=== PATIENT | female | born 1950 | race Caucasian/White ===

== ENCOUNTER → 2019-04-26 | Outpatient (CLI) | payer OTHER | LOC: HYPER 03-22 08:28 | DX: I89.0 Lymphedema, not elsewhere classified (principal); E11.40 Type 2 diabetes mellitus with diabetic neuropathy, unspecified; L60.0 Ingrowing nail; M72.2 Plantar fascial fibromatosis; I73.9 Peripheral vascular disease, unspecified; D64.9 Anemia, unspecified; B35.1 Tinea unguium; B35.3 Tinea pedis; B36.9 Superficial mycosis, unspecified; R60.0 Localized edema; Z87.891 Personal history of nicotine dependence; Z79.84 Long term (current) use of oral hypoglycemic drugs ==

== ENCOUNTER → 2021-05-29 | Outpatient (CLI) | payer OTHER | LOC: SJCVC 10:15 | PROVIDERS: ATTEND Nuclear Medicine Nuclear Cardiology | DX: I87.303 Chronic venous hypertension (idiopathic) without complications of bilateral lower extremity (principal); M79.89 Other specified soft tissue disorders; I89.0 Lymphedema, not elsewhere classified; E78.00 Pure hypercholesterolemia, unspecified; I10 Essential (primary) hypertension; E11.9 Type 2 diabetes mellitus without complications; Z90.49 Acquired absence of other specified parts of digestive tract; Z88.2 Allergy status to sulfonamides; Z79.84 Long term (current) use of oral hypoglycemic drugs; Z79.899 Other long term (current) drug therapy ==